=== PATIENT | female | born 1970 | race Caucasian/White ===

== ENCOUNTER 2016-06-18 08:48 | Emergency (ER) | payer BC ==
[~2016-06-18] VITALS: Wt 109.1 kg
[~2016-06-18 08:48] MED LIST: FLUO20CA38 PO; GABA300C16 PO; PRAM0.5T18 PO
[2016-06-18] MEDS ORDERED: SOD CHLORIDE 0.9% 1,000 ML IV STA (09:19)
[2016-06-18] MEDS ORDERED: ONDANSETRON 4 MG INJ IV STA (09:19)
[2016-06-18] MEDS ORDERED: morphine 4 MG/ML VIAL IV STA (09:19)
--- NOTE | 2016-06-18 09:30 | ERD ---
ER Documentation Chief Complaint Date/Time DATE: 06/18/16 TIME: 09:20 Chief Complaint llq pain w n/v/d and constipation HPI This is a 45 year old female with history of diverticulitis,gastric ulcers, endometriosis and multiple abdominal surgeries (SP appendectomy, cholecystectomy , , partial hysterectomy with right oophorectomy, and a most recent left cyst and oophorectomy in Apr 2016) presenting to the emergency department complaining of worsening left lower quadrant abdominal pain for two weeks, currently she rates pain 7/10. Patient complains of nausea, vomiting, on/off diarrhea with constipation. She states it has progressively worsened 3 days ago. Patient states she was seen here in April 2016 for a left ovarian cyst in which she had surgery for oophorectomy, adhesions to bladder and possibly a fistula within the colon. Patient denies any fever, urinary symptoms/hematuria , hematemesis, melena, hematochezia. Patient's PMD is who is working on a referral to see a GI specialist. ROS All systems reviewed and are negative except as per history of present illness. Medications Home Meds Active Scripts Ciprofloxacin Hcl* (Ciprofloxacin Hcl*) 500 Mg Tablet, 500 MG PO BID, #14 TAB Prov:VINCE GARRIDOC 06/18/16 Metronidazole* (Flagyl*) 500 Mg Tablet, 500 MG PO TID for 7 Days, TAB Prov:VINCE GARRIDOC 06/18/16 Hydrocodone/Acetaminophen ([place] 5-325 Tablet) 1 Each Tablet, 1 EACH PO Q4 Y for PAIN, #20 TAB Prov:VINCE GARRIDO PA-C 06/18/16 Reported Medications Pramipexole* (Mirapex*) 0.5 Mg Tablet, 0.5 MG PO DAILY, TAB 03/25/16 Gabapentin* (Gabapentin*) 300 Mg Capsule, 300 MG PO BID, #60 CAP 03/25/16 Fluoxetine Hcl* (Prozac*) 20 Mg Capsule, 20 MG PO DAILY, CAP 03/25/16 Allergies Allergies: Coded Allergies: Sulfa (Sulfonamide Antibiotics) (Verified Allergy, Unknown, 04/10/16) diphenhydramine (Verified Adverse Reaction, Unknown, 04/10/16) PMhx/Soc History of Surgery: Yes (C/SX1, PARTIAL HYSTERECTOMY, APPENDECTOMY) Anesthesia Reaction: No Hx Neurological Disorder: Yes (RESTLESS LEG SYNDROME) Hx Respiratory Disorders: No Hx Cardiac Disorders: No Hx Psychiatric Problems: No Hx Miscellaneous Medical Probl: No Hx Alcohol Use: No Hx Substance Use: No Hx Tobacco Use: No Physical Exam Vitals Vital Signs Date Time Temp Pulse Resp B/P Pulse Ox O2 Delivery O2 Flow Rate FiO2 06/18/16 09:03 96.9 74 20 131/78 97 Physical Exam GENERAL: well-developed/well-nourished, in no apparent distress, non-toxic appearing HENT: NC/AT, moist mucous membranes EYES: Conjunctiva normal NECK: Supple, no lymphadenopathy PULM: CTA bilaterally, no rales, rhonchi, or wheezing heard CV: Normal S1S2, RRR, good capillary refill GI: Soft, non-distended, tender to palpation in left lower quadrant Normal bowel sounds, no masses or organomegaly felt on exam No gross peritonitis, no bruits Negative Rovsing, negative Walters, negative McBurney's point, Negative CVAT BACK: No masses EXT: No clubbing, cyanosis, or edema NEURO: Alert and Orientated SKIN: Intact, normal turgor PSYCH: Normal mood and mentation Result Diagram: 06/18/1693206/18/16932 Results 24 hrs Laboratory Tests Test 06/18/16 09:33 Alanine Aminotransferase (ALT/SGPT) 24IU/L Albumin 4.5g/dl Albumin/Globulin Ratio 1.15 Alkaline Phosphatase 52IU/L Anion Gap 20 Aspartate Amino Transf (AST/SGOT) 20IU/L Basophils # 0.010^3/ul Basophils % 0.3% Blood Morphology Comment Blood Urea Nitrogen 14mg/dl Calcium Level 9.7mg/dl Carbon Dioxide Level 26mmol/L Chloride Level 106mmol/L Creatinine 0.73mg/dl Direct Bilirubin 0.00mg/dl Eosinophils # 0.210^3/ul Eosinophils % 2.7% Globulin 3.90g/dl Glucose Level 99mg/dl Hematocrit 43.4% Hemoglobin 14.5g/dl Indirect Bilirubin 0.3mg/dl Lipase 55U/L Lymphocytes # 2.010^3/ul Lymphocytes % 23.3% Mean Corpuscular Hemoglobin 27.7pg Mean Corpuscular Hemoglobin Concent 33.4g/dl Mean Corpuscular Volume 82.9fl Mean Platelet Volume 8.7fl Monocytes # 0.710^3/ul Monocytes % 7.9% Neutrophils # 5.710^3/ul Neutrophils % 65.8% Nucleated Red Blood Cells # 0.010^3/ul Nucleated Red Blood Cells % 0.0/100WBC Platelet Count 93611^3/UL Potassium Level 4.1mmol/L Red Blood Count 5.2410^6/ul Red Cell Distribution Width 13.3% Sodium Level 148mmol/L Total Bilirubin 0.3mg/dl Total Protein 8.4g/dl Urine Bilirubin NEGATIVE Urine Clarity CLEAR Urine Color LT. YELLOW Urine Glucose NEGATIVE% Urine Hemoglobin 2+ Urine Ketones NEGATIVE Urine Leukocyte Esterase NEGATIVE Urine Microscopic RBC 2-5/HPF Urine Microscopic WBC NONE SEEN/HPF Urine Nitrite NEGATIVE Urine Specific [place] 1.020 Urine Total Protein NEGATIVE Urine Urobilinogen 0.2 E.U./dL Urine pH 6.0 White Blood Count 8.610^3/ul Current Medications Medications (Trade) Dose Ordered Sig/Ella Route PRN Reason Start Time Stop Time Status Last Admin Dose Admin Sodium Chloride (NS) 1,000 ml @ 1,000 mls/hr Q1H STAT IV 06/18/16 09:19 06/18/16 10:18 DC 06/18/16 09:39 Morphine Sulfate (morphine) 4 mg ONCE STAT IV 06/18/16 09:19 06/18/16 09:21 DC 06/18/16 09:40 Ondansetron HCl (Zofran Inj) 4 mg ONCE STAT IV 06/18/16 09:19 06/18/16 09:21 DC 06/18/16 09:39 IV Flush 10 ml 10 ml STK-MED ONCE .ROUTE 06/18/16 09:47 06/18/16 09:48 DC Sodium Chloride (NS) 0 ml @ ud STK-MED ONCE .ROUTE 06/18/16 09:47 06/18/16 09:48 DC Iohexol (Omnipaque 300mg/ ml) 150 ml STK-MED ONCE .ROUTE 06/18/16 09:47 06/18/16 09:48 DC Ciprofloxacin (Cipro) 500 mg ONCE STAT PO 06/18/16 10:23 06/18/16 10:27 DC 06/18/16 10:42 Metronidazole (Flagyl) 500 mg ONCE STAT PO 06/18/16 10:23 06/18/16 10:27 DC 06/18/16 10:42 Morphine Sulfate (morphine) 6 mg ONCE ONCE IV 06/18/16 11:00 06/18/16 11:01 DC 06/18/16 10:56 PROCEDURE: CT Abdomen and Pelvis without contrast. CLINICAL INDICATION: Abdominal pain. Left lower quadrant pain with nausea and vomiting. Constipation and diarrhea. Status post hysterectomy for endometriosis. TECHNIQUE: CT scan of the abdomen and pelvis without contrast was performed on a multi-slice CT scanner without intravenous contrast. Coronal and sagittal reformatted images were obtained from the axial source images. Images were reviewed on a high-resolution PACS workstation. One or more of the following does reduction techniques were used: Automated exposure control; adjustment of the mA and/or kV according to patient size; use of the aorta of reconstruction technique. The total exam CTDI equals 22.91 mGy and the total exam DLP equals 1526.23 mGy-cm. COMPARISON: None available. FINDINGS: There are mild dependent changes in the posterior lower lobes. The lung bases are otherwise clear. Heart size is normal, and there is no evidence of pericardial thickening or effusion. The liver, spleen, and pancreas are normal given limitations of a noncontrast CT examination. The gallbladder is surgically absent. The adrenal glands are normal. The kidneys without renal calculus or hydronephrosis. The aorta is of normal caliber. There is no retroperitoneal lymph node enlargment. There is no evidence of large or small bowel obstruction. Extensive colonic diverticula are noted, particular in the region of the sigmoid colon. There is mild thickening of the mid sigmoid colon likely indicative of diverticulitis. There are no definite adjacent inflammatory changes. There is no evidence of perforation or abscess formation. Of note, given history of endometriosis, an endometrial implant on the colon that also have this appearance. Postsurgical changes are noted in the left lower quadrant which may be related to prior hysterectomy and/or subsequent endometrioma removal. The uterus is absent. Postsurgical changes are noted in the left posterior pelvis. No enlarged pelvic sidewall lymph nodes are seen. The bladder is decompressed and collapsed. No free fluid is identified. The inguinal regions are unremarkable. The bones are intact. IMPRESSION: 1. Diverticulosis of the sigmoid colon with associated mild thickening of the mid sigmoid colon likely indicative of diverticulitis. There are no definitive adjacent inflammatory changes, perforation, or abscess formation. Given history of endometriosis, an endometrial implant on the sigmoid colon could also have this appearance. Clinical correlation with patient history may help distinguish these entities. 2. Status post cholecystectomy. 3. Status post hysterectomy. Postoperative changes are noted in the left posterior pelvis which may be related to prior hysterectomy or endometrioma resection. Recommend correlation with surgical history. RPTAT: KK .Nirmal Freed MD, Date Time Electronically viewed and signed by .Nirmal Freed MD, on 2016 10:09 .B/ CC: VINCE GARRIDO PA-C Procedures/MDM This is a 45 year old female with history of diverticulitis,gastric ulcers, endometriosis and multiple abdominal surgeries (SP appendectomy, cholecystectomy , , partial hysterectomy with right oophorectomy, and a most recent left cyst and oophorectomy in Apr 2016) presenting to the emergency department complaining of worsening left lower quadrant abdominal pain, intermittent constipation and diarrhea for two weeks I have reviewed patient's chart, she was seen here in April 2016 for a left ovarian cyst in which she had surgery for oophorectomy, adhesions to bladder and possibly a fistula within the colon. Patient's PMD is who is working on a referral to see a GI specialist. IV access is established. Patient was given a liter of fluids with morphine and Zofran. I reassessed patient and she was doing better. Lab work was drawn. CBC did not show any evidence of leukocytosis or anemia. CMP did not show any evidence of renal, liver, or electrolyte abnormalities. Lipase was normal. UA did not show any evidence of hemoglobin or urinary tract infection. CT abdomen and pelvis without contrast: 1. Diverticulosis of the sigmoid colon with associated mild thickening of the mid sigmoid colon likely indicative of diverticulitis. There are no definitive adjacent inflammatory changes, perforation, or abscess formation. Given history of endometriosis, an endometrial implant on the sigmoid colon could also have this appearance. Clinical correlation with patient history may help distinguish these entities. 2. Status post cholecystectomy. 3. Status post hysterectomy. Postoperative changes are noted in the left posterior pelvis which may be related to prior hysterectomy or endometrioma resection. Recommend correlation with surgical history. Patient's pain is likely due to diverticulosis however she will be empirically treated with antibiotics for possible diverticulitis that was found on CT. I will low suspicion for perforation, abscess, bacteremia, obstruction. Patient was given pain relief in the ED and her first dose of antibiotics Cipro and Flagyl. Patient is suitable for outpatient antibiotics and to follow-up with her primary care physician to get a referral to see a gasoline truck operator. Patient is stable for discharge with precautions to return the ER for any worsening signs or symptoms. She understands and agrees with this plan. Prescriptions given for Flagyl, [place] and VINCE Nunez PA-C Jun 18, 2016 09:29
[2016-06-18] MEDS ORDERED: SOD CHLORIDE 0.9% 0 ML ONE (09:47)
[2016-06-18] MEDS ORDERED: IOHEXOL 300MG/ML 150 ML BTL ONE (09:47)
[2016-06-18 09:51] LABS: ADD UMIC YES; URINE BILIRUBIN (Dip) NEGATIVE (NEGATIVE); URINE BLOOD (Dip) 2+ (NEGATIVE); URINE COLOR LT. YELLOW (YELLOW); URINE GLUCOSE (Dip) NEGATIVE (NEGATIVE); URINE KETONES (Dip) NEGATIVE (NEGATIVE); URINE LEUKOCYTE ESTERASE (Dip) NEGATIVE (NEGATIVE); URINE NITRITE (Dip) NEGATIVE (NEGATIVE); URINE TOTAL PROTEIN (Dip) NEGATIVE (NEGATIVE); URINE UROBILINOGEN (Dip) 0.2 E.U./dL (0.1-1.0)
[2016-06-18 09:54] LABS: BASOPHILS % 0.3 % (0.0-2.0); EOSINOPHILS # 0.2 10^3/ul (0.0-0.5); EOSINOPHILS % 2.7 % (0.0-7.0); HEMATOCRIT 43.4 % (37.0-47.0); HEMOGLOBIN 14.5 g/dl (12.0-16.0); LYMPHOCYTES % 23.3 % (15.0-51.0); MEAN CORPUSCULAR HEMOGLOBIN 27.7 pg (29.0-33.0); MEAN CORPUSCULAR HGB CONC 33.4 g/dl (32.0-37.0); MEAN CORPUSCULAR VOLUME 82.9 fl (82.0-101.0); MEAN PLATELET VOLUME 8.7 fl (7.4-10.4); MONOCYTE # 0.7 10^3/ul (0.3-0.9); MONOCYTES % 7.9 % (0.0-11.0); NEUTROPHIL # 5.7 10^3/ul (1.6-7.5); NEUTROPHILS % 65.8 % (39.0-77.0); PLATELET COUNT 265 10^3/UL (140-440); RED BLOOD COUNT 5.24 10^6/ul (4.20-5.40); RED CELL DISTRIBUTION WIDTH 13.3 % (11.5-14.5); UNCORRECTED WBC 8.6 10^3/ul (4.8-10.8); WHITE BLOOD COUNT 8.6 10^3/ul (4.8-10.8)
[2016-06-18 09:56] LABS: ALBUMIN 4.5 g/dl (3.3-4.9)
[2016-06-18 09:57] LABS: POTASSIUM 4.1 mmol/L (3.5-5.1)
[2016-06-18 09:58] LABS: CONDITION 1
[2016-06-18 09:59] LABS: ALBUMIN/GLOBULIN RATIO 1.15; BILIRUBIN,INDIRECT 0.3 mg/dl (0-1.1); BILIRUBIN,TOTAL 0.3 mg/dl (0.2-1.3); CREATININE 0.73 mg/dl (0.44-1.00); TOTAL PROTEIN 8.4 g/dl (6.1-8.1)
[2016-06-18 10:00] LABS: CALCIUM 9.7 mg/dl (8.4-10.2)
--- NOTE | 2016-06-18 10:10 | RADRPT ---
PROCEDURE: CT Abdomen and Pelvis without contrast. CLINICAL INDICATION: Abdominal pain. Left lower quadrant pain with nausea and vomiting. Constip ation and diarrhea. Status post hysterectomy for endometriosis. TECHNIQUE: CT scan of the abdomen and pelvis without contrast was performed on a multi-slice CT banner without intravenous contrast. Coronal and sagittal reformatted images were obtained from the axial source images. Images were reviewed on a high-resolution PACS workstation. One or more of the following does reduction techniques were used: Automated exposure control; adjustment of the mA an d/or kV according to patient size; use of the aorta of reconstruction technique. The total exam CTD I equals 22.91 mGy and the total exam DLP equals 1526.23 mGy-cm. COMPARISON: None available. FINDINGS: There are mild dependent changes in the posterior lower lobes. The lung bases are otherwise clear. Heart size is normal, and there is no evidence of pericardial thickening or effusion. The liver, spleen, and pancreas are normal given limitations of a noncontrast CT examination. The g allbladder is surgically absent. The adrenal glands are normal. The kidneys without renal calculus or hydronephrosis. The aorta is of normal caliber. There is no retroperitoneal lymph node enlargment. There is no evidence of large or small bowel obstruction. Extensive colonic diverticula are noted, particular in the region of the sigmoid colon. There is mild thickening of the mid sigmoid colon li javi indicative of diverticulitis. There are no definite adjacent inflammatory changes. There is no evidence of perforation or abscess formation. Of note, given history of endometriosis, an endome trial implant on the colon that also have this appearance. Postsurgical changes are noted in the le ft lower quadrant which may be related to prior hysterectomy and/or subsequent endometrioma removal. The uterus is absent. Postsurgical changes are noted in the left posterior pelvis. No enlarged pelv ic sidewall lymph nodes are seen. The bladder is decompressed and collapsed. No free fluid is iden tified. The inguinal regions are unremarkable. The bones are intact. IMPRESSION: 1. Diverticulosis of the sigmoid colon with associated mild thickening of the mid sigmoid colon lik yosef indicative of diverticulitis. There are no definitive adjacent inflammatory changes, perforatio n, or abscess formation. Given history of endometriosis, an endometrial implant on the sigmoid colo n could also have this appearance. Clinical correlation with patient history may help distinguish t hese entities. 2. Status post cholecystectomy. 3. Status post hysterectomy. Postoperative changes are noted in the left posterior pelvis which ma y be related to prior hysterectomy or endometrioma resection. Recommend correlation with surgical hi story. RPTAT: KK .Nirmal Freed MD, MD Date Time Electronically viewed and signed by .Nirmal Freed MD, MD on 06/18/2016 10:09 .B/
[2016-06-18] MEDS ORDERED: CIPROFLOXACIN 500 MG TAB PO STA (10:23)
[2016-06-18] MEDS ORDERED: metroNIDAZOLE 500 MG TAB PO STA (10:23)
[2016-06-18] MEDS ORDERED: METR500T PO (10:29)
[2016-06-18] MEDS ORDERED: HYDR-906 PO (10:29)
[2016-06-18] MEDS ORDERED: CIPR500T4 PO (10:29)
[2016-06-18] MEDS ORDERED: morphine 10 MG INJ IV ONE (11:00)
[2016-06-18 11:23] VITALS: BP 121/74; PULSE 62; RESP 18
== END 2016-06-18 11:46 | disposition home or self-care (01) ==
LOC: FTE 08:48
DX: R10.32 Left lower quadrant pain (principal); R11.2 Nausea with vomiting, unspecified
CPT/HCPCS: 36415; 74176; 80053; 81001; 82962; 83690; 85025; 96374; 96375; 96376; 99285; J2270; J2405; J7030; Z7610; 81003; Q9967

== ENCOUNTER 2018-02-21 14:55 | Emergency (ER) | END 2018-02-21 19:52 | disposition home or self-care (01) ==